=== PATIENT | male | born 1950 ===

== ENCOUNTER 2021-10-17 08:41 | Outpatient (CLI) | payer MEDICARE, OTHER ==
[2021-10-17] MEDS ORDERED: Magnevist 469MG/ML 20 ML VIAL ONE (12:20)
== END 2021-10-17 08:42 | disposition home or self-care (01) ==
LOC: CSHMRI 08:41
PROVIDERS: ATTEND Podiatrist
DX: M84.375A Stress fracture, left foot, initial encounter for fracture (principal); G89.29 Other chronic pain; M25.475 Effusion, left foot; M79.89 Other specified soft tissue disorders; M19.072 Primary osteoarthritis, left ankle and foot